=== PATIENT | female | born 1960 | race Caucasian/White ===

== ENCOUNTER 2018-05-28 21:11 | Emergency (ER) | payer BC ==
[2018-05-28] MEDS: Lidocaine 2% 10 ML Amp INJECT ONE (21:55)
--- NOTE | 2018-05-28 21:57 | EDM.PDOC ---
ED HPI GENERAL MEDICAL PROBLEM - General Chief Complaint: Laceration Stated Complaint: cut to left thumb Time Seen by Provider: 05/28/18 21:21 Source of Information: Reports: Patient, Family, RN, RN Notes Reviewed History Limitations: Reports: No Limitations - History of Present Illness INITIAL COMMENTS - FREE TEXT/NARRATIVE: Patient presents to the ED at [facility] after she sustained a laceration to the dorsum of the left thumb. Patient states she was using a utility knife to cut the bottoms off some bar stools she was refurbishing when the knife slipped causing the laceration. Patient denies any numbness, tingling or paresthesia. No previous injury to affected area. Patient has active/passive ROM with out any problems. Onset: Today Onset Date: 05/28/18 ED ROS GENERAL - Review of Systems Review Of Systems: See Below Constitutional: Denies: Fever, Chills, Weakness Respiratory: Denies: Shortness of Breath, Cough Cardiovascular: Denies: Chest Pain, Palpitations Skin: Reports: Wound (laceration to left thumb) Neurological: Reports: No Symptoms. Denies: Numbness, Paresthesia, Tingling ED EXAM, SKIN/RASH Exam: See Below Exam Limited By: No Limitations General Appearance: Alert, No Apparent Distress Respiratory/Chest: No Respiratory Distress, Lungs Clear, Normal Breath Sounds Cardiovascular: Normal Peripheral Pulses, Regular Rate, Rhythm Peripheral Pulses: 2+: Radial (L), Radial (R) Neurological: Alert, Oriented Skin: Warm, Dry, Intact, Normal Color, Wound/Incision (3cm dorsal laceration to left thumb; low grade venous ooze; will require surgical closure for optimal wound healing) ED SKIN PROCEDURES - Laceration/Wound Repair Left Dorsal Digit - 1st (Thumb) Lac/Wound length In cm: 3 Appearance: Subcutaneous Distal NVT: Neuro & Vascular Intact, No Tendon Injury Anesthetic Type: Local Local Anesthesia - Lidocaine (Xylocaine): 2% Plain Local Anesthetic Volume: 5cc Skin Prep: Chlorhexidine (Hibiciens), Saline Exploration/Debridement/Repair: Wound Explored, In a Bloodless Field, Explored to Base, No Foreign Material Found Closed with: Sutures Suture Size: 4-0 # of Sutures: 6 Suture Type: Nylon, Interrupted, Simple Sterile Dressing Applied: Nurse Tetanus Status Addressed: Yes Complications: No Course - Orders/Labs/Meds Meds: Medications Discontinued Medications Generic Name Dose Route Start Last Admin Trade Name Noemy PRN Reason Stop Dose Admin Lidocaine HCl 10 ml 05/28/18 21:21 Xylocaine-Mpf 2% (Sterile-Cameron) INJECT 05/28/18 21:22 ONETIME ONE Departure - Departure Time of Disposition: 22:15 Disposition: Home, Self-Care 01 Condition: Good Clinical Impression: Finger laceration Qualifiers: Encounter type: initial encounter Finger: thumb Damage to nail status: without damage Foreign body presence: without foreign body Laterality: left Qualified Code(s): S61.012A - Laceration without foreign body of left thumb without damage to nail, initial encounter - Discharge Information *PRESCRIPTION DRUG MONITORING PROGRAM REVIEWED*: Not Applicable *COPY OF PRESCRIPTION DRUG MONITORING REPORT IN PATIENT MOISÉS: Not Applicable Instructions: Laceration Care, Adult, Stitches, Elvin, or Adhesive Wound Closure Referrals: PCP,None [Primary Care Provider] - Trent Linares NP [Emergency Provider] - Forms: ED Department Discharge Additional Instructions: 1. Stay well hydrated and rest 2. Keep area clean and dry 3. Keep bandage on at least 24 hours, then remove 4. Sutures to stay in for 10 days, then see me in 10 days for recheck and removal
== END 2018-05-28 22:20 | disposition home or self-care (01) ==
LOC: VM.ED 21:11
DX: S61.012A Laceration without foreign body of left thumb without damage to nail, initial encounter (principal); W26.0XXA Contact with knife, initial encounter
CPT/HCPCS: 12002; 99282

== ENCOUNTER 2025-01-23 09:40 | Day surgery (SDC) | payer BC ==
[2025-01-23] MEDS: Lactated Ringers 1,000 ML IV SCH (10:00)
[2025-01-23] MEDS ORDERED: Propofol 200 MG/20 ML SDV ONE ×2 (10:21→11:49)
[2025-01-23] MEDS ORDERED: fentaNYL 100 MCG/2 ML SDV ONE (10:21)
[2025-01-23] MEDS ORDERED: Simethicone Drops 40 MG/0.6 ML 30 ML Bottle ONE (11:41)
== END 2025-01-23 12:45 | disposition home or self-care (01) ==
LOC: VM.SDS 09:40
PROVIDERS: ATTEND Student in an Organized Health Care Education/Training Program
DX: Z12.11 Encounter for screening for malignant neoplasm of colon (principal); C20 Malignant neoplasm of rectum; D12.1 Benign neoplasm of appendix; D12.2 Benign neoplasm of ascending colon; R19.5 Other fecal abnormalities; Z79.899 Other long term (current) drug therapy
CPT/HCPCS: 00811; A9270-GY; J2704; J3010; J7120